=== PATIENT | female | born 1945 | race Caucasian/White ===

== ENCOUNTER 2023-05-23 07:18 | Day surgery (SDC) | payer MEDICARE, OTHER ==
[2023-05-23] MEDS: LACTATED RINGERS 1,000 ML IV ONE ×2 (07:40→09:12)
[2023-05-23] MEDS: PROPARACAINE 0.5% OPHTH DROPS 15 ML ONE (07:40)
[2023-05-23] MEDS: KETOROLAC 0.45% OPHTH DROPS ONE (07:40)
[2023-05-23] MEDS: PHENYLEPHRINE 2.5% OPHTH 2 ML DROPS ONE (07:40)
[2023-05-23] MEDS ORDERED: EPINEPHrine 1 MG/ML AMP ONE (08:23)
[2023-05-23] MEDS ORDERED: TIMOLOL 0.5% OPHTH DROPS ONE (08:23)
[2023-05-23] MEDS ORDERED: TRIAMCIN/MOXIFLOX OPHTHALMIC 0.6 ML VIAL IO ONE (08:23)
[2023-05-23] MEDS ORDERED: BRIMONIDINE 0.2% OPHTH DROPS 5 ML ONE (08:23)
[2023-05-23] MEDS ORDERED: BSS/LIDOCAINE/EPINEPHRINE 1 ML VIAL ONE (08:24)
[2023-05-23] MEDS ORDERED: fentaNYL 100 MCG/2 ML VIAL ONE (08:38)
[2023-05-23] MEDS ORDERED: MIDAZOLAM 2 MG/2 ML VIAL ONE (08:38)
--- NOTE | 2023-05-23 08:42 | ANESTHESIA ---
Pre-Anesthesia VS, & Labs - Diagnosis left cataract - Procedure left cataract extraction with IOL Vital Signs: Temp Pulse Resp BP Pulse Ox O2 Flow Rate 36.3 C L 68 20 172/73 H 97 0 05/23/23 07:40 05/23/23 07:40 05/23/23 07:40 05/23/23 07:40 05/23/23 07:40 05/23/23 07:40 Height: 5 ft 2 in Weight (kg): 88.9 kg Body Mass Index: 35.8 BMI Classification: Obese - NPO >8 hours - Is Patient ?: No - Lab Results Current Lab Results: Laboratory Tests 05/23/23 07:50: POC Whole Bld Glucose 189 H Home Medications and Allergies Aspirin [Vazalore] 81 mg PO DAILY 05/08/23 Empagliflozin [Jardiance] 10 mg PO DAILY 05/08/23 FLUoxetine [PROzac] 40 mg PO DAILY 05/08/23 Isosorbide Mononitrate ER [Imdur] 90 mg PO DAILY 05/08/23 Levothyroxine [Synthroid] 75 mcg PO QDAC 05/08/23 Lisinopril [Zestril] 20 mg PO BID 05/08/23 Rosuvastatin Calcium [Crestor] 40 mg PO DAILY 05/08/23 carvediloL [Coreg] 50 mg PO BID 05/08/23 Allergies/Adverse Reactions: Allergies Allergy/AdvReac Type Severity Reaction Status Date / Time No Known Drug Allergies Allergy Verified 05/22/23 12:41 Anes History & Medical History - Anesthetic History Anesthesia Complications: reports: No previous complications - Medical History Cardiovascular: reports: Hypertension, High cholesterol Pulmonary: reports: None Gastrointestinal: reports: None Urinary: reports: None Neuro: reports: CVA Musculoskeletal: reports: None Endocrine/Autoimmune: reports: Type 2 diabetes Skin: reports: None Smoking Status: Never smoker Psychosocial: reports: No issues indicated History of Cancer?: No - Surgical History General: reports: Cholecystectomy, Appendectomy Eyes Ears Nose Throat (EENT): reports: Other (thyroidectomy for goiter) Cardiothoracic: reports: Coronary stent Exam General: Alert, Oriented x3 Dental: WNL Mouth Opening: Greater than 4 Fingerbreadths Mallampati classification: III Thyromental Distance: greater than 6 cm Respiratory: Lungs clear Cardiovascular: Regular rate Plan Anesthesia Type: MAC Consent for Procedure(s) Verified and Reviewed: Yes Code Status: Attempt Resuscitation ASA classification: 3-Severe systemic disease Is this case an emergency?: No
[2023-05-23] MEDS: BRIMONIDINE 0.2% OPHTH DROPS 5 ML OPTH ONE (08:59)
[2023-05-23] MEDS: BSS/LIDOCAINE/EPINEPHRINE 1 ML SYRINGE IO ONE (09:00)
[2023-05-23] MEDS: VANCOMYCIN OPHTH (TOPICAL) 10 MG/ML SYRINGE TOP ONE (09:00)
[2023-05-23] MEDS: PROPARACAINE 0.5% OPHTH DROPS 15 ML RIGHTEYE ONE (09:00)
[2023-05-23] MEDS: TIMOLOL 0.5% OPHTH DROPS OPTH ONE (09:00)
[2023-05-23] MEDS: TRIAMCIN/MOXIFLOX OPHTHALMIC 0.6 ML VIAL IO ONE (09:00)
[2023-05-23] MEDS: EPINEPHrine 1 MG/ML AMP IR ONE (09:00)
--- NOTE | 2023-05-23 09:26 | OPERATIVE REPORT ---
Operative Report - Other Other Information/Narrative: Date of Surgery: 05/23/23 Preop Dx: Visually significant cataract right eye. This was the first cataract surgery. Postop Dx: Same Procedure: Phacoemulsification with posterior chamber intraocular lens implant right eye Surgeon: Dr. Ruslan Contreras Anesthesia: Monitored anesthesia care Complications: None Operative Indications: This is a 77-year-old F with progressive vision loss in the right eye due to 4+ nuclear sclerotic 1+ posterior subcapsular, and vacuolar cataract. Best corrected visual acuity was 20/60 with glare to hand motion vision in the right eye. Indications for surgery were: - Overall decrease in vision - Difficulty reading - Difficulty seeing words, closed captions, or game scores on TV - Difficulty driving in low light or at night - Difficulty driving at night because of headlights from other vehicles - Difficulty with glare or bright lights in any situation The patient was consented at length concerning the risks and benefits of cataract surgery after which the patient expressed a desire to proceed with surgery. Operative Procedure: The patient was taken into OR#3 and placed under monitored anesthesia care. A surgical time-out was conducted confirming correct patient, correct procedure, and correct surgical site. The patient was given topical anesthesia and then prepped and draped in the usual sterile fashion. The eye was entered at the 6 and 3 oclock positions. Intracameral Shugarcaine was injected into the anterior chamber followed by a dispersive viscoelastic. A co ntinuous-tear curvilinear capsulorhexis was performed. The nucleus was hydrodissected and phacoemulsified. The cortex was evacuated using automated infusion and aspiration. A cohesive viscoelastic was injected into the capsular bag and a 22.5 diopter intraocular lens was inserted into the bag. Infusion and aspiration were used to evacuate the viscoelastic materials from the eye. The wounds were hydrated and the eye inflated to physiologic pressure using balanced salt solution. Approximately 0.25ml of a mixture of triamcinolone and moxifloxacin was injected trans-sclerally into the vitreous in the inferotemporal quadrant using a 30 gauge cannula. An additional 0.25ml of a mixture of triamcinolone and moxifloxacin was injected subconjunctivally in the superior quadrant for infection and inflammation prophylaxis. Wound integrity was checked with Weck-Maliha sponges. The patient was taken from the operating room in good condition and given post-op instructions.
[2023-05-23 09:44] VITALS: BP 146/62; O2SAT 95
--- NOTE | 2023-05-23 11:18 | ANESTHESIA POST OP EVALUATION ---
Anesthesia Post Eval - Post Anesthesia Eval Vitals: Last Vital Signs Temp 36.7 C 05/23/23 09:42 Pulse 73 05/23/23 09:42 Resp 16 05/23/23 09:42 BP 146/62 H 05/23/23 09:42 Pulse Ox 95 05/23/23 09:42 O2 Flow Rate 0 05/23/23 07:40 CV Function Including HR & BP: Stable Pain Control: Satisfactory Nausea & Vomiting: Negative Mental Status: Baseline Respiratory Status: Airway Patent Hydration Status: Satisfactory Anesthesia Complications: None
== END 2023-05-23 07:19 | disposition home or self-care (01) ==
LOC: SDS 07:18
PROVIDERS: ATTEND Ophthalmology
DX: E11.36 Type 2 diabetes mellitus with diabetic cataract (principal); H25.811 Combined forms of age-related cataract, right eye; E66.9 Obesity, unspecified; Z68.35 Body mass index [BMI] 35.0-35.9, adult; Z79.84 Long term (current) use of oral hypoglycemic drugs
CPT/HCPCS: 66984; A9270; J3490; J7120

== ENCOUNTER 2023-07-18 06:21 | Day surgery (SDC) | payer MEDICARE, OTHER ==
[2023-07-18] MEDS: LACTATED RINGERS 1,000 ML IV ONE ×2 (06:35→07:54)
[2023-07-18] MEDS: KETOROLAC 0.45% OPHTH DROPS ONE (06:40)
[2023-07-18] MEDS: PROPARACAINE 0.5% OPHTH DROPS 15 ML ONE (06:40)
[2023-07-18] MEDS: PHENYLEPHRINE 2.5% OPHTH 2 ML DROPS ONE (06:45)
[2023-07-18] MEDS ORDERED: BSS/LIDOCAINE/EPINEPHRINE 1 ML VIAL ONE (06:55)
[2023-07-18] MEDS ORDERED: BRIMONIDINE 0.2% OPHTH DROPS 5 ML ONE (06:55)
[2023-07-18] MEDS ORDERED: TRIAMCIN/MOXIFLOX OPHTHALMIC 0.6 ML VIAL IO ONE (06:55)
[2023-07-18] MEDS ORDERED: TIMOLOL 0.5% OPHTH DROPS ONE (06:55)
[2023-07-18] MEDS ORDERED: EPINEPHrine 1 MG/ML AMP ONE (06:55)
--- NOTE | 2023-07-18 07:23 | ANESTHESIA ---
Pre-Anesthesia VS, & Labs - Diagnosis LEFT EYE CATARACT - Procedure LEFT EYE CATARACT EXTRACTION Vital Signs: Temp Pulse Resp BP Pulse Ox O2 Flow Rate 36.3 C L 66 19 153/68 H 98 07/18/23 06:34 07/18/23 06:34 07/18/23 06:34 07/18/23 06:34 07/18/23 06:34 Height: 5 ft 2 in Weight (kg): 90.6 kg Body Mass Index: 36.5 BMI Classification: Obese - NPO Last Fluid Intake: 0600 SIPS Last Food Intake: 1900 - Is Patient ?: No - Lab Results Current Lab Results: Laboratory Tests 07/18/23 06:48: POC Whole Bld Glucose 123 H Home Medications and Allergies Home Medications: Ambulatory Orders Dulaglutide [Trulicity] 30 mg SUBQ OAW 07/17/23 Insulin Glargine [Lantus Solostar] 30 units SUBQ DAILY 07/18/23 Aspirin [Vazalore] 81 mg PO DAILY 05/08/23 FLUoxetine [PROzac] 40 mg PO DAILY 05/08/23 Isosorbide Mononitrate ER [Imdur] 90 mg PO DAILY 05/08/23 Levothyroxine [Synthroid] 75 mcg PO QDAC 05/08/23 Lisinopril [Zestril] 20 mg PO BID 05/08/23 Rosuvastatin Calcium [Crestor] 40 mg PO DAILY 05/08/23 carvediloL [Coreg] 50 mg PO BID 05/08/23 Dulaglutide [Trulicity] 30 mg SUBQ OAW 07/17/23 Insulin Glargine [Lantus Solostar] 30 units SUBQ DAILY 07/18/23 Allergies/Adverse Reactions: Allergies Allergy/AdvReac Type Severity Reaction Status Date / Time No Known Drug Allergies Allergy Verified 07/18/23 07:08 Anes History & Medical History - Anesthetic History Anesthesia Complications: reports: No previous complications Family history of Anesthesia Complications: Denies - Medical History Cardiovascular: reports: Hypertension (TOOK LISINOPRIL THIS AM) Pulmonary: reports: Asthma (DENIES) Gastrointestinal: reports: None Urinary: reports: Renal insuffiency Neuro: reports: CVA Musculoskeletal: reports: None Endocrine/Autoimmune: reports: Type 2 diabetes (123 THIS AM), HyPOthyroidism Skin: reports: None Smoking Status: Never smoker Psychosocial: reports: No issues indicated - Surgical History General: reports: Cholecystectomy Eyes Ears Nose Throat (EENT): reports: Other (thyroidectomy for goiter) Cardiothoracic: reports: Coronary stent (ASA) Results - EKG Results EKG Comparison: Reviewed EKG Exam General: Alert, Oriented x3 Dental: WNL Mouth Openin Fingerbreadth Neck Mobility: Normal Mallampati classification: II Thyromental Distance: 4-6 cm Plan Anesthesia Type: MAC Consent for Procedure(s) Verified and Reviewed: Yes Code Status: Attempt Resuscitation ASA classification: 2-Mild systemic disease Is this case an emergency?: No
[2023-07-18] MEDS: BRIMONIDINE 0.2% OPHTH DROPS 5 ML OPTH ONE (07:33)
[2023-07-18] MEDS: EPINEPHrine 1 MG/ML AMP IR ONE (07:34)
[2023-07-18] MEDS: TIMOLOL 0.5% OPHTH DROPS OPTH ONE (07:34)
[2023-07-18] MEDS: TRIAMCIN/MOXIFLOX OPHTHALMIC 0.6 ML VIAL IO ONE (07:35)
[2023-07-18] MEDS: BSS/LIDOCAINE/EPINEPHRINE 1 ML SYRINGE IO ONE (07:35)
[2023-07-18] MEDS: PROPARACAINE 0.5% OPHTH DROPS 15 ML LEFTEYE ONE (07:36)
[2023-07-18] MEDS: PROPARACAINE 0.5% OPHTH DROPS 15 ML EACHEYE ONE (07:36)
[2023-07-18] MEDS: VANCOMYCIN OPHTH (TOPICAL) 10 MG/ML SYRINGE TOP ONE (07:36)
--- NOTE | 2023-07-18 08:03 | OPERATIVE REPORT ---
Operative Report - Other Other Information/Narrative: Date of Surgery: 07/18/23 Preop Dx: Visually significant cataract left eye. Cataract surgery was performed in the right eye on . Postop Dx: Same Procedure: Phacoemulsification with posterior chamber intraocular lens implant left eye Surgeon: Dr. Ruslan Contreras Anesthesia: Monitored anesthesia care Complications: None Operative Indications: This is a 78-year-old F with progressive vision loss in the left eye due to 3-4+ nuclear sclerotic and 1+ posterior subcapsular cataract. Best corrected visual acuity was 20/40 with glare to hand motion vision in the left eye. Indications for surgery were: - Difficulty reading - Difficulty seeing words, closed captions, or game scores on TV - Difficulty driving in low light or at night - Difficulty driving at night because of headlights from other vehicles - Difficulty with glare or bright lights in any situation The patient was consented at length concerning the risks and benefits of cataract surgery after which the patient expressed a desire to proceed with surgery. Operative Procedure: The patient was taken into OR#3 and placed under monitored anesthesia care. A surgical time-out was conducted confirming correct patient, correct procedure, and correct surgical site. The patient was given topical anesthesia and then prepped and draped in the usual sterile fashion. The eye was entered at the 6 and 3 oclock positions. Intracameral Shugarcaine was injected into the anterior chamber followed by a dispersive viscoelastic. A continuous-tear curvilinear capsulorhexis was performed. The nucleus was hydrodissected and phacoemulsified. The cortex was evacuated using automated infusion and aspiration. A cohesive viscoelastic was injected into the capsular bag and a 22.5 diopter intraocular lens was inserted into the bag. Infusion and aspiration were used to evacuate the viscoelastic materials from the eye. The wounds were hydrated and the eye inflated to physiologic pressure using balanced salt solution. Approximately 0.25ml of a mixture of triamcinolone and moxifloxacin was injected trans-sclerally into the vitreous in the inferotemporal quadrant using a 30 gauge cannula. An additional 0.25ml of a mixture of triamcinolone and moxifloxacin was injected subconjunctivally in the superior quadrant for infection and inflammation prophylaxis. Wound integrity was checked with Weck-Maliha sponges. The patient was taken from the operating room in good condition and given post-op instructions.
[2023-07-18 08:10] VITALS: O2SAT 93
[2023-07-18 08:26] VITALS: BP 157/71
--- NOTE | 2023-07-18 11:56 | ANESTHESIA POST OP EVALUATION ---
Anesthesia Post Eval - Post Anesthesia Eval Vitals: Last Vital Signs Temp 36.2 C L 07/18/23 07:55 Pulse 66 07/18/23 08:15 Resp 14 07/18/23 08:15 BP 157/71 H 07/18/23 08:15 Pulse Ox 93 07/18/23 08:15 O2 Flow Rate CV Function Including HR & BP: Stable Pain Control: Satisfactory Nausea & Vomiting: Negative Mental Status: Baseline Respiratory Status: Airway Patent Hydration Status: Satisfactory Anesthesia Complications: None
== END 2023-07-18 06:22 | disposition home or self-care (01) ==
LOC: SDS 06:21
PROVIDERS: ATTEND Ophthalmology
DX: H25.812 Combined forms of age-related cataract, left eye (principal); E11.36 Type 2 diabetes mellitus with diabetic cataract; Z98.41 Cataract extraction status, right eye; E66.9 Obesity, unspecified; Z68.36 Body mass index [BMI] 36.0-36.9, adult; I10 Essential (primary) hypertension; Z79.4 Long term (current) use of insulin
CPT/HCPCS: 66984; A9270; J3490; J7120